=== PATIENT | male | born 1970 | race Caucasian/White ===

== ENCOUNTER 2017-08-06 14:33 | Emergency (ER) | payer SELFPAY ==
[~2017-08-06] VITALS: Ht 185.4 cm; Wt 122.5 kg
--- NOTE | 2017-08-06 14:56 | ED CARDIAC/CP/PALPITATIONS ---
History of Present Illness General Chief Complaint: Chest Pain Stated Complaint: TIGHTNESS IN CHEST, PAIN IN L SIDE SHOULDER Source: patient, family, old records Exam Limitations: no limitations Vital Signs & Intake/Output Vital Signs & Intake/Output Vital Signs Date Time Temp Pulse Resp B/P B/P Pulse O2 O2 Flow FiO2 Mean Ox Delivery Rate 08/06 1521 97 08/06 1442 98.4 82 20 134/87 96 Room Air Allergies Coded Allergies: NO KNOWN ALLERGIES (03/07/13) Reconcile Medications Atorvastatin Calcium 10 MG TABLET 1 TAB PO EOD CHOLESTEROL (Reported) Levothyroxine Sodium 175 MCG TABLET 1 TAB PO DAILY THYROID (Reported) Liothyronine Sodium 5 MCG TABLET 1 TAB PO BID THYROID (Reported) Lisdexamfetamine Dimesylate (Vyvanse) 40 MG CAPSULE 1 CAP PO QAM ADD ( Reported) Multiple Vitamin (Multivitamins) 1 EACH TABLET 1 TAB PO DAILY SUPPLEMENT ( Reported) Triage Note: C/O CHEST TIGHTNESS X 2 DAYS. SOB WHEN LAYING DOWN, TODAY TIGHTNESS STARTED IN CENTER OF CHEST AND RADIATED TO LEFT BICEP, ARM AND EAR Triage Nurses Notes Reviewed? yes HPI: Patient presents with substernal chest tightness that radiates up to his left shoulder and left ear. Pain is been present for the past hour. Patient states that he has had similar symptoms intermittently over the past few days. Patient does not think they're related to activity. He states that he has been having dyspnea on exertion over the past week or 2. Patient states that occasionally he feels like he can't breathe if he is laying down. This does not occur every night. Patient is concerned because his father had his first heart attack at the age of 50. Patient also states that he hasn't epigastric burning sensation. At its worst the pain is 6 out of 10. Past History Travel History Traveled to [place] past 21 day No Medical History Any Pertinent Medical History? see below for history Cardiovascular: hyperlipidemia Psychiatric: ADHD Endocrine: hypothyroidism Surgical History Surgical History: non-contributory Psychosocial History Who do you live with Spouse Services at Home None What is your primary language Czech Tobacco Use: Never used ETOH Use: occasional use Illicit Drug Use: denies illicit drug use Family History Hx Contributory? No Review of Systems Review of Systems Constitutional: Reports: no symptoms. EENTM: Reports: no symptoms. Respiratory: Reports: see HPI. Cardiovascular: Reports: see HPI, chest pain. GI: Reports: see HPI, abdominal pain. Genitourinary: Reports: no symptoms. Musculoskeletal: Reports: no symptoms. Skin: Reports: no symptoms. Neurological/Psychological: Reports: no symptoms. Hematologic/Endocrine: Reports: no symptoms. Immunologic/Allergic: Reports: no symptoms. All Other Systems: Reviewed and Negative Physical Exam Physical Exam General Appearance: well developed/nourished, alert, awake, anxious, mild distress Head: atraumatic, normal appearance Eyes: Bilateral: PERRL, EOMI. Ears, Nose, Throat: normal pharynx, normal ENT inspection, hearing grossly normal Neck: normal inspection, supple, full range of motion Respiratory: normal breath sounds, chest non-tender, no respiratory distress, lungs clear Cardiovascular: regular rate/rhythm, normal peripheral pulses Gastrointestinal: normal bowel sounds, soft, non-tender, no organomegaly Back: normal inspection, normal range of motion Extremities: normal inspection, normal capillary refill, normal range of motion, no edema Neurologic/Psych: no motor/sensory deficits, awake, alert, oriented x 3, normal gait, normal mood/affect Skin: intact, normal color, warm/dry Lymphatic: no anterior cervical melva Core Measures ACS in differential dx? Yes CVA/TIA Diagnosis No Sepsis Present: No Sepsis Focused Exam Completed? No Progress Differential Diagnosis: AMI, cholecystitis, costochondritis, hyperthyroid, musculoskeletal pain, myocarditis, pancreatitis, pericarditis, pneumonia, pneumothorax, PSVT, pulmonary embolism, PUD/GERD Plan of Care: Orders Procedure Date/time Status TROPONIN LEVEL 08/06 1800 Complete EKG 08/06 1800 Active EKG 08/06 1618 Active Add-on Test (ER Only) 08/06 1546 Active Add-on Test (ER Only) 08/06 1516 Active Telemetry/Oxygen Furnace Operator 08/06 1504 Active LIPASE 08/06 1453 Complete D-DIMER 08/06 1453 Complete B-TYPE NATRIURETIC PEP (BNP) 08/06 1453 Complete AMYLASE 08/06 1453 Complete TROPONIN LEVEL 08/06 1435 Complete COMPREHENSIVE METABOLIC PANEL 08/06 1435 Complete CBC WITHOUT DIFFERENTIAL 08/06 1435 Complete EKG 08/06 1434 Active Laboratory Tests 08/06/17 1800: Troponin I < 0.01 08/06/17 1618: Troponin I Cancelled 01/03/18 1453: Anion Gap 12, Estimated GFR > 60, BUN/Creatinine Ratio 14.4, Glucose 134 H, Calcium 9.2, Total Bilirubin 0.9, AST 31, ALT 60, Alkaline Phosphatase 74, Troponin I < 0.01, Bqu-A-Wtjfmcjkczo Pept 48.8, Total Protein 7.2, Albumin 4.1, Globulin 3.1, Albumin/Globulin Ratio 1.3, Amylase < 30 L, Lipase 70, D-Dimer High Sensitivty < 200, CBC w Diff NO MAN DIFF REQ, RBC 5.56, MCV 87.5, MCH 29.7, RDW 13.7, MPV 7.7, Gran % 66.8, Lymphocytes % 24.5, Monocytes % 5.4, Eosinophils % 1.8, Basophils % 1.5, Absolute Granulocytes 6.2, Absolute Lymphocytes 2.3, Absolute Monocytes 0.5, Absolute Eosinophils 0.2, Absolute Basophils 0.1, PUBS MCHC 34.0 Diagnostic Imaging: Viewed by Me: Radiology Read. Discussed w/RAD: Radiology Read. Radiology Impression: PATIENT: JULIAN AVILES PRESENT AGE: 47 PATIENT ACCOUNT NO: [id number] : 70 LOCATION: [facility] ORDERING PHYSICIAN: Julian Weathers MD SERVICE DATE: 08/06/17 EXAM TYPE: RAD - XRY-PORTABLE CHEST XRAY EXAMINATION: XR PORTABLE CHEST CLINICAL INFORMATION: Chest pain. COMPARISON: Chest x-ray 03/07/2013. TECHNIQUE: Portable frontal 85 degrees semiupright view of the chest was obtained. FINDINGS: The lung jane are well expanded and appear clear bilaterally. The cardiac silhouette is normal. There are no pleural effusions or pneumothorax. The central pulmonary vasculature is normal. The hilar regions appear normal. There are no acute osseous findings. IMPRESSION: 1. There are no acute cardiopulmonary findings. DICTATED BY: Alek Mack MD DATE/TIME DICTATED:08/06/171530 [employer] ASSEMBLY SUPERVISOR :MURRAY DATE/TIME TRANSCRIBED:08/06/171530 CONFIDENTIAL, DO NOT COPY WITHOUT APPROPRIATE AUTHORIZATION. <Electronically signed in Other Vendor System> SIGNED BY: Alek Mack MD 08/06/17 8050 Initial ED EKG: NSR, no ST T wave changes Prior EKG: unchanged Rhythm Strip: normal sinus rhythm Comments: Pain relieved after GI cocktail. Patient has been updated on the lab and chest x-ray results. Questions up and answered. Patient is pending a second set of enzymes. Patient understands that even if the second set of enzymes are negative he will slowly to follow-up with cardiology for further testing. Departure Departure Disposition: HOME OR SELF CARE Condition: Stable Clinical Impression Primary Impression: Chest pain, unspecified Qualifiers: Chest pain type: other chest pain Qualified Code: R07.89 - Other chest pain Referrals: Ghanshyam Jiménez MD (PCP/Family) Ministerio Moy MD Additional Instructions: FOLLOW UP WITH DR. MOY RETURN IF SYMPTOMS WORSEN OR FOR ANY CONCERNS Departure Forms: Customer Survey General Discharge Information Critical Care Note Critical Care Note Critical Care Time: non-applicable
[2017-08-06 15:05] LABS: ABSOLUTE BASOPHIL COUNT 0.1 /CUMM (0.0-0.2); ABSOLUTE EOSINOPHIL COUNT 0.2 /CUMM (0.0-0.7); ABSOLUTE GRANULOCYTE CT 6.2 /CUMM (1.4-6.5); ABSOLUTE LYMPH COUNT 2.3 /CUMM (1.2-3.4); ABSOLUTE MONOCYTE COUNT 0.5 /CUMM (0.10-0.60); BASOPHIL % 1.5 % (0.0-2.0); EOSINOPHIL % 1.8 % (0-5); GRANULOCYTE % 66.8 % (42.2-75.2); HEMATOCRIT 48.7 % (42-52); MEAN CORPUSCULAR HGB 29.7 PG (27.0-31.0); MEAN CORPUSCULAR VOLUME 87.5 FL (80.0-94.0); MEAN PLATELET VOLUME 7.7 FL (7.4-10.4); PLATELET COUNT 231 /CUMM (130-400); RBC DISTRIBUTION WIDTH 13.7 % (11.5-14.5); RED BLOOD CELL CT 5.56 /CUMM (4.70-6.10); WHITE BLOOD CELL COUNT 9.2 /CUMM (4.8-10.8)
--- NOTE | 2017-08-06 15:42 | RADIOLOGY REPORT ---
EXAMINATION: XR PORTABLE CHEST CLINICAL INFORMATION: Chest pain. COMPARISON: Chest x-ray 03/07/2013. TECHNIQUE: Portable frontal 85 degrees semiupright view of the chest was obtained. FINDINGS: The lung jane are well expanded and appear clear bilaterally. The cardiac silhouette is normal. There are no pleural effusions or pneumothorax. The central pulmonary vasculature is normal. The hilar regions appear normal. There are no acute osseous findings. IMPRESSION: 1. There are no acute cardiopulmonary findings.
[2017-08-06] MEDS ORDERED: LEVOTHYROXINE175 MCG PO (16:33)
[2017-08-06] MEDS ORDERED: LIOTHYRONINE SO5 MC1 PO (16:33)
[2017-08-06] MEDS ORDERED: VYVANSE40 M1 PO (16:34)
[2017-08-06] MEDS ORDERED: MULTIVITAMINS1 EAC9 PO (16:34)
[2017-08-06] MEDS ORDERED: ATORVASTATIN CA10 M1 PO (16:36)
[2017-08-06 18:59] VITALS: BP 114/79
== END 2017-08-06 19:00 ==
LOC: ERH 14:33
PROVIDERS: Physician Assistant Medical
DX: R07.89 Other chest pain (principal)
CPT/HCPCS: 71045; 93005; 93010